=== PATIENT | female | born 1960 | race Caucasian/White ===

== ENCOUNTER 2021-10-08 17:27 | Inpatient (IN) | payer OTHER ==
[~2021-10-08] VITALS: Ht 170.2 cm; Wt 61.6 kg
[~2021-10-08 17:27] MED LIST: ALPRAZOLAM ER1 MG PO; IBUPROFEN 600600 M1 PO; LOPRESSOR100 MG PO; NORCO 5-325 TA1 EACH PO
[2021-10-08 17:37] VITALS: BP 127/88
[2021-10-08 19:19] LABS: ABSOLUTE NEUTROPHILS 9.1 thou/uL (1.4-8.2); BASOPHILS 0.7 % (0.0-2.0); EOSINOPHILS 0.7 % (0.0-3.0); HEMATOCRIT 38.5 % (37.0-47.0); HEMOGLOBIN 12.2 gm/dL (12.0-15.0); LYMPHOCYTES 9.6 % (24.0-44.0); MCHC 31.6 g/dL (28.0-37.0); MCV 85.5 fL (80.0-100.0); MONOCYTES 5.8 % (1.0-8.0); PLATELET COUNT 246 thou/uL (150-400); POLYS 83.2 % (36.0-66.0); RDW 16.1 % (10.5-14.5); WBC 10.9 thou/uL (4.0-11.0)
[2021-10-08 19:23] LABS: CALCIUM 8.4 mg/dL (8.5-10.1); CREATININE 0.9 mg/dL (0.6-1.0); POTASSIUM 3.9 mmol/L (3.5-5.1)
[2021-10-08 19:32] LABS: TOTAL BILIRUBIN 0.7 mg/dL (0.2-1.0); TOTAL PROTEIN 6.7 g/dL (6.4-8.2)
[2021-10-08] MEDS ORDERED: METOPROLOL TAR100 MG PO (22:37)
[2021-10-08 22:52] VITALS: BP 118/90
[2021-10-08 23:55] VITALS: BP 124/90
[2021-10-09] VITALS (8 sets, daily range): BP systolic 109–124; BP diastolic 77–88
[2021-10-09 03:35] LABS: CHOLESTEROL 107 mg/dL (<200); HDL CHOLESTEROL 33 mg/dL (>40); LDL CHOLESTEROL 57 mg/dL (<100); TC:HDL 3.2 Ratio (Not establshd); TRIGLYCERIDE 86 mg/dL (<150); VLDL 17 mg/dL (<40)
[2021-10-09 03:36] LABS: SERUM ASSESSMENT Clear
[2021-10-09 03:42] LABS: CALCIUM 8.6 mg/dL (8.5-10.1); CREATININE 0.9 mg/dL (0.6-1.0); POTASSIUM 3.5 mmol/L (3.5-5.1)
--- NOTE | 2021-10-09 04:56 | NUR ---
PT ADMITTED FROM HOME FOR ELEVATED TROPONIN AND SOB, ALERT AND ORIENTEDX4, SR/ST ON TELE, DENIES CP, STILL SOME WITH ACTIVITY, REMAINS ON RA, O2SATS STABLE, ADMISSION ASSESSMENT, HX. AND EDUCATION COMPLETED. SKIN INTACT, IV TO THE RAC INTACT, PLAN FOR LASIX AND US TO THE LLE TO R/O DVT, WILL CONTINUE TO MONITOR
[2021-10-09 08:57] LABS: MAGNESIUM 1.9 mg/dL (1.8-2.4)
--- NOTE | 2021-10-09 12:28 | NUR ---
TOOK OVER CARE OF THIS PATIENT AT 0700. PT RESTING IN BED. PT COMPLAINTS OF FEELING FATIGUED. PT SOA UPON EXERTION; PT WEARING 2 L NC; SPO2 HAS REMAINED IN THE UPPER 90'S. VSS. PT COMPLAINT OF NAUSEA AND WRETCHING WHEN SHE RETURNED FROM ULTRASOUND. ADMIN PRN ZOFRAN WITH MILD RELIEF OF SYMPTOMS. PT COMPLAINT OF FEELING ANXIOUS; ADMIN PRN ANXIETY MEDICATION. WILL CONTINUE TO MONITOR. INFORMED CARDIOLOGY REGARDING PTS SYMPTOMS WELL CHANGES ON CRM DYNAMICS DEVELOPER.
--- NOTE | 2021-10-09 12:48 | 2DMMODE ---
[facility] [place] [address] 2 D/M-MODE ECHOCARDIOGRAM Name: LUIZA NINA Room #: 211-P ADM IN M.R.#: [id number] Admission: 10/08/21 Attend Phys: Brian Beasley MD Discharge: Date of : 60 Report #: [id number] THIS REPORT FOR: cc: Jon Flores MD, Kirk D. MD Park, Jin S. MD ~ APPROVED REPORT Study performed: 10/09/2021 11:37:28 EXAM: Comprehensive 2D, Doppler, and color-flow Echocardiogram Patient Location: Bedside Room #: 211 Status: routine BSA: 1.71 HR: 76 bpm BP: 124/88 mmHg Rhythm: LBBB Other Information Study Quality: Excellent Indications Short of breath, leg swelling, CHF, Elevated troponin. Hx: COPD, HTN, strong family history. 2D Dimensions RVDd: 42.71 mm IVSd: 7.91 (7-11mm) LVOT Diam: 21.25 (18-24mm) LVDd: 60.21 mm PWd: 8.57 (7-11mm) Ascending Ao: 33.09 (22-36mm) LVDs: 57.48 (25-40mm) Left Atrium: 50.57 (27-40mm) Aortic Root: 35.15 mm Volumes Left Atrial Volume (Systole) Single Plane 4CH: 76.20 mL Single Plane 2CH: 73.97 mL LA ESV Index: 47.00 mL/m2 Aortic Valve AoV Peak Asim.: 0.72 m/s AO Peak Gr.: 2.08 mmHg [facility] [address] [address] 2 D/M-MODE ECHOCARDIOGRAM Name: LUIZA NINA JODY Room #: 211-P [facility] IN [facility].#: [id number] Admission: 10/08/21 Attend Phys: Brian Beasley MD Discharge: Date of : 60 Report #: [id number] Mitral Valve E/A Ratio: 3.2 MV Decel. Time: 77.37 ms MV E Max Asim.: 0.76 m/s MV A Asim.: 0.24 m/s MV PHT: 22.44 ms IVRT: 121.11 ms Pulmonary Valve PV Peak Asim.: 0.47 m/s PV Peak Gr.: 0.90 mmHg Tricuspid Valve TR Peak Asim.: 2.74 m/s RAP Estimate: 15.00 mmHg TR Peak Gr.: 30.00 mmHg PA Pressure: 45.00 mmHg Left Ventricle Left ventricle is mildly dilated. There is global hypokinesis of the left ventricle. There is normal left ventricular wall thickness. Left ventricular systolic function is severely decreased. LVEF is 15%. Severe diastolic dysfunction is present (restrictive filling). Right Ventricle Right ventricle is borderline dilated. Right ventricle is hypokinetic. Atria Left atrium is severely dilated. Right atrium is moderately dilated. Aortic Valve Aortic valve is mildly calcified. Mild aortic regurgitation. There is no aortic valvular stenosis. Mitral Valve The mitral valve is normal in structure. Moderate mitral regurgitation. Tricuspid Valve The tricuspid valve is normal in structure. Severe tricuspid regurgitation. Unable to assess PA pressure. Pulmonic Valve The pulmonary valve is normal in structure. Mild pulmonic regurgitation. [facility] [address] [place] [address] 2 D/M-MODE ECHOCARDIOGRAM Name: LUIZA NINA Room #: [address] [place] [address] [place] ..#: [id number] Admission: 10/08/21 Attend Phys: Brian Beasley MD Discharge: Date of : 60 Report #: [id number] Great Vessels The aortic root is normal in size. The ascending aorta is normal in size. Pericardium There is no pericardial effusion. Bilateral pleural effusions. <Conclusion> Left ventricle is mildly dilated. There is normal left ventricular wall thickness. Left ventricular systolic function is severely decreased. Right ventricle is borderline dilated. Right ventricle is hypokinetic. Left atrium is severely dilated. Mild aortic regurgitation. Moderate mitral regurgitation. Severe tricuspid regurgitation. <ELECTRONICALLY SIGNED> By: Adeel Rivera MD 10/09/21 1248 1248 1248 Adeel Rivera MD /INF
--- NOTE | 2021-10-09 14:26 | EKG ---
[address] [place] [address] ELECTROCARDIOGRAM REPORT Name: LIUZA NINA Room #: 211- ADM IN M.R.#: [id number] Admission: 10/08/21 Attend Phys: Brian Beasley MD Discharge: Date of : 60 Report #: [id number] [facility] ED Test Date: 2021-10-08 Test Time: 17:45:00 Pat Name: LUIZA NINA Department: Room: 211 P Gender: F Erp Specialist: MY : 1960 Requested By: Evelin Delgado Order Number: [id number] MD: Adeel Rivera Measurements Intervals [place] Rate: 106 P: 85 [place]: 164 QRS: -39 QRSD: 124 T: 121 QT: 371 QTc: 493 Interpretive Statements Sinus tachycardia Probable left atrial enlargement Left bundle branch block pattern Compared to ECG 03/19/2013 13:56:03 Left bundle-branch block now present Sinus rhythm no longer present ST (T wave) deviation no longer present Electronically Signed On 10-09-2021 14:26:38 UNDERGROUND FOREMAN by Adeel Rivera [email or web address] <ELECTRONICALLY SIGNED> By: Adeel Rivera MD 10/09/21 1426 1745 1745 Adeel Rivera MD /ALESSIA
--- NOTE | 2021-10-09 15:06 | NUR ---
Case opened to follow for nm planning. Booth Supervisor visited with the pt at bedside. She indicates that she lives at home with her spouse and she is normally indep with gait and adl's. She has copd and does smoke. She has had worsening sob for the past week. Covid neg. No dme or hh history. No insurance x 2 years as her spouse is disabled and no longer worker. Prior to this she saw Jag Holt for PCP. She has been seen by [facility] and they started a [place]. Pt getting cardiac workup as well. Echo/stress today possible cardiac cath. Cm role introduced. Pt familiar with [facility] $4 list for medications. [facility] and [facility] discussed as possible followup clinic/health system for ongoing medical care at nm. Possible candidate for ss disablity pending her heart workup and extent of her COPD.
--- NOTE | 2021-10-09 15:14 | NUR ---
SPOKE TO TRUDY MONAHAN ARMOR RECONNAISSANCE VEHICLE CREWMAN REGARDING PATIENT STATUS; CONTINUED NAUSEA, FATIGUE, AND GENERAL MALAISE. CARDIOLOGY REVIEWED PATIENTS ECHO; WOULD LIKE TO CONTINUE TO MONITOR PATIENT OVER THE WEEKEND. WILL CONTINUE TO MONITOR. VSS.
[2021-10-09 16:56] LABS: BE(vivo) -2.8 mmol/L (-2 to +3); HCO3 21.5 mmol/L (22.0-26.0); PCO2 35.8 mmHg (35.0-45.0); PO2 105.1 mmHg (80.0-100.0); pH 7.396 (7.360-7.450); sO2 97.8 % (92.0-98.0)
[2021-10-09 17:24] LABS: CALCIUM 8.9 mg/dL (8.5-10.1); CREATININE 1.1 mg/dL (0.6-1.0)
[2021-10-09 17:28] LABS: POTASSIUM 4.6 mmol/L (3.5-5.1)
[2021-10-09 22:46] LABS: AMP/METHAMP POSITIVE (Negative); BARBITURATES Negative (Negative); BENZODIAZEPINES POSITIVE (Negative); COCAINE Negative (Negative); METHADONE Negative (Negative); OPIATES Negative (Negative); PCP Negative (Negative)
[2021-10-10 04:21] VITALS: BP 108/78
--- NOTE | 2021-10-10 04:41 | NUR ---
ASSUMED PT CARE AT 1900, PT IS DROWSY, ORIENTEDX4, SPOUSE AT BEDSIDE, ASSESSMENTS CHARTED, SR ON TELE, 11 BEATS OF VTACH NOTED ON TELE, ASYMPTOMATIC, DENIES CP, SOA WITH ACTIVITY, URINE SEND FOR TOX SCREEN, RESULTS COMMUNICATED TO CERTIFIED DIETARY MANAGER LIME SLUDGE KILN OPERATOR, REMAINS WEAK, STBY ASSIST TO THE B/S COMMODE, PLAN FOR POSSIBLE CATH PER CARDIOLOGY, WILL CONTINUE TO MONITOR
[2021-10-10 07:55] VITALS: BP 117/82
[2021-10-10 11:10] LABS: BASOPHILS 0.5 % (0.0-2.0); HEMATOCRIT 42.4 % (37.0-47.0); HEMOGLOBIN 13.3 gm/dL (12.0-15.0); LYMPHOCYTES 10.5 % (24.0-44.0); MCH 26.7 pg (26.0-34.0); MCHC 31.4 g/dL (28.0-37.0); MCV 84.9 fL (80.0-100.0); MONOCYTES 10.1 % (1.0-8.0); PLATELET COUNT 291 thou/uL (150-400); POLYS 78.9 % (36.0-66.0); RBC 4.99 mil/uL (4.20-5.00); RDW 16.2 % (10.5-14.5); WBC 12.7 thou/uL (4.0-11.0)
[2021-10-10 11:40] LABS: ALBUMIN 3.1 g/dL (3.4-5.0); CALCIUM 8.7 mg/dL (8.5-10.1); CREATININE 1.4 mg/dL (0.6-1.0); MAGNESIUM 1.6 mg/dL (1.8-2.4); POTASSIUM 4.6 mmol/L (3.5-5.1); TOTAL BILIRUBIN 1.9 mg/dL (0.2-1.0); TOTAL PROTEIN 6.8 g/dL (6.4-8.2)
[2021-10-10 12:05] VITALS: BP 101/75
[2021-10-10 16:08] VITALS: BP 110/82
[2021-10-10 20:15] VITALS: BP 116/90
--- NOTE | 2021-10-11 02:57 | NUR ---
ASSESSMENTS CHARTED, MEDS CHARTED GIVEN. PATIENT RESTING IN BED DURING SHIFT. SR WITH BBB ON TELEMETRY. WEEZES ON 1 LITER NC. NPO SINCE MIDNIGHT FOR US OF ABDOMEN.
[2021-10-11 04:45] VITALS: BP 106/68
[2021-10-11 05:07] LABS: ABSOLUTE NEUTROPHILS 11.5 thou/uL (1.4-8.2); BASOPHILS 0.2 % (0.0-2.0); EOSINOPHILS 0.1 % (0.0-3.0); HEMATOCRIT 42.5 % (37.0-47.0); HEMOGLOBIN 13.3 gm/dL (12.0-15.0); LYMPHOCYTES 4.5 % (24.0-44.0); MCH 26.3 pg (26.0-34.0); MCHC 31.1 g/dL (28.0-37.0); MCV 84.3 fL (80.0-100.0); MONOCYTES 4.5 % (1.0-8.0); PLATELET COUNT 271 thou/uL (150-400); POLYS 90.7 % (36.0-66.0); RBC 5.05 mil/uL (4.20-5.00); RDW 16.2 % (10.5-14.5); WBC 12.7 thou/uL (4.0-11.0)
[2021-10-11 05:14] LABS: ALBUMIN 2.5 g/dL (3.4-5.0); CALCIUM 8.2 mg/dL (8.5-10.1); MAGNESIUM 1.4 mg/dL (1.8-2.4); PHOSPHORUS 3.8 mg/dL (2.6-4.7); TOTAL BILIRUBIN 1.6 mg/dL (0.2-1.0); TOTAL PROTEIN 5.9 g/dL (6.4-8.2)
[2021-10-11 07:14] VITALS: BP 120/90
[2021-10-11 10:48] VITALS: BP 108/80
[2021-10-11 13:02] LABS: URINE BILIRUBIN NEGATIVE (Negative); URINE BLOOD TRACE (Negative); URINE CLARITY CLEAR; URINE COLOR YELLOW; URINE GLUCOSE-RANDOM* NEGATIVE (Negative); URINE KETONES NEGATIVE (Negative); URINE LEUKOCYTES-REFLEX NEGATIVE (Negative); URINE NITRITE-REFLEX NEGATIVE (Negative); URINE PROTEIN (DIPSTICK) NEGATIVE (Negative); URINE UROBILINOGEN 0.2 E.U./dl (0.2-1.0)
[2021-10-11 16:22] VITALS: BP 95/61
--- NOTE | 2021-10-11 19:37 | NUR ---
Pt was A&Ox4, VS stable, afebrile throughout shift. Pt had abdomenal ultrasound done in AM. Plam is for receiver/laborer on 10/12/21. Pt has poor appetite and reports feeling very tired. Pt felt nauseous twice during shift - controlled with Zofran. Pt is resting in bed. Requested xanax at bedtime. No concerns at this time. Continue to monitor.
[2021-10-11 19:45] VITALS: BP 110/80
--- NOTE | 2021-10-12 02:35 | NUR ---
ASSESSMENTS CHARTED, MEDS CHARTED GIVEN. RESTING IN BED DURING SHIFT. HOPING TO GET QUALITY SLEEP TONIGHT. STILL SOB WITH ACTIVITY. PATIENT REQUESTED ALPRAZOLAM TO HELP QUIET MIND. PATIENT IS SCHEDULED FOR THE WATER COMMISSIONER IN THE MORNING.
[2021-10-12 04:45] VITALS: BP 108/76
[2021-10-12 06:06] LABS: HAV IgM AB (ANTI-HAV IgM) Negative (Negative); HEPATITIS B SURFACE AG Negative (Negative)
[2021-10-12 07:35] LABS: CALCIUM 8.1 mg/dL (8.5-10.1); CREATININE 1.1 mg/dL (0.6-1.0); POTASSIUM 4.2 mmol/L (3.5-5.1)
[2021-10-12 08:32] VITALS: BP 118/89
[2021-10-12 12:08] VITALS: BP 117/89
[2021-10-12 12:23] LABS: CALCIUM 8.2 mg/dL (8.5-10.1)
[2021-10-12 15:04] LABS: BE(vivo) 4.5 mmol/L (-2 to +3); HCO3 31.6 mmol/L (22.0-26.0); PCO2 VENOUS 57.2 mmHg (41.0-51.0); PO2 VENOUS 29.4 mmHg (35.0-45.0)
[2021-10-12 15:05] LABS: BE(vivo) 1.7 mmol/L (-2 to +3); HCO3 28.1 mmol/L (22.0-26.0); PCO2 51.2 mmHg (35.0-45.0); PO2 359.2 mmHg (80.0-100.0); pH 7.357 (7.360-7.450); sO2 99.8 % (92.0-98.0)
--- NOTE | 2021-10-12 16:08 | CATHLAB ---
[facility] [place] [address] [address] INVASIVE PROCEDURE REPORT Name: LUIZA NINA Room #: 211-P ADM IN M.R.#: [id number] Admission: 10/08/21 Attend Phys: Amanda Taylor Hemanth Discharge: Date of : 60 Report #: [id number] THIS REPORT FOR: cc: Jon Flores MD, Kirk D. MD Park, Jin S. MD ~ APPROVED REPORT Study performed: 10/12/2021 14:09:19 Patient Details Patient Status: In-Patient Room #: 211 The patient is a 60 year-old female Event Personnel Adeel Rivera Die Repair, Kat Krueger RTR Monitor, Leon Meza RTR ScrubCaleb Dexter RN addictions counselor Performed Art Access - R femoral artery* Sammy Access - R femoral vein Right and Left Heart Cath w/or w/o Coronarie [id number] [facility] Hemostasis with Manual pressure 60756 Initial Mod Sed Same Phys/QHP Gr5y 100263 66421 Mod Sed Same Phys/QHP Ea [id number] Indication CHF Current Status: , Dyspnea, Cardiomyopathy Risk Factors Hypercholesterolemia, Tobacco History () Procedure Narrative The Right Groin^ was infiltrated with 1% Lidocaine subcutaneous anesthesia. A PINNACLE 4FR Sheath #[id number] sheath was inserted into the RFA. Coronary angiography was performed using coronary diagnostic catheters. The right coronary system was accessed and visualized with a JR4 catheter. The left coronary system was accessed and visualized with a JL4 catheter. The left ventricle was accessed and visualized with a JR4 catheter. Hemostasis was obtained with manual pressure following sheath removal without any complications. The patient tolerated the procedure well and there were no complications associated with the procedure. There was no hematoma. Intraoperative Conscious Sedation Sedation start time: 14:40 Case end Time: [facility] [address] [place] [address] INVASIVE PROCEDURE REPORT Name: MAICOLUIZA ALEJANDRO Room #: [address] [place] [address] [place] ..#: [id number] Admission: 10/08/21 Attend Phys: Amanda Ambriz Discharge: Date of : 60 Report #: [id number] 15:18 Fentanyl 50 mcg Versed 0.5 mg Fluoro Time: 2.70 minutes Dose: DAP 1984.30 cGycm2 204 mGy Contrast Type and Amount: Omnipaque 30 ml Coronary Angiography The patient's coronary anatomy is co- dominant. Diagnostic Cath Left Main Left main artery is a large-caliber vessel, appears angiographically normal. LAD The LAD is a moderate-sized caliber vessel, traverses the anterior wall and wraps around the apex. There is mild disease in the proximal segment, less than 20%. Diagonal 1 This is a moderate-sized caliber vessel, patent with no flow-limiting lesions. This vessel divides into 2 branches at the midpoint. Circumflex The left circumflex artery is a codominant vessel with no flow-limiting lesions. OM1 This is a small to moderate-sized caliber vessel, patent with no flow-limiting lesions. OM2 This is a small to moderate-sized caliber vessel, patent with no flow-limiting lesions. Right Coronary There is mild disease in the midsegment, less than 20%. R PDA This is a small to moderate-sized caliber vessel, patent with no flow-limiting lesions. Left Ventriculography Left Ventriculography was not performed. Ejection Fraction was 20% based off patient's Echocardiogram. An LVEDP was measured and there is no gradient across the outflow tract. Hemodynamics The right atrial mean pressure is 22 mmHg. The right ventricular pressure is 58/5 mmHg. The pulmonary artery pressure is 63/36 mmHg with a mean of 46 mmHg. The mean pulmonary capillary wedge pressure is 43 mmHg. The aortic pressure is 112/87 mmHg with a mean of 97 mmHg. The left ventricular pressure is 109/25 mmHg with a mean of mmHg. The left ventricular end diastolic pressure is 33 mmHg. PaO2 saturation is 52.00 %. Arterial saturation is 98.60 %. The cardiac output using the Otf method is 1.91 L/min. The cardiac index using the Otf method is 1.15 L/min/m2. [facility] [address] [place] [address] INVASIVE PROCEDURE REPORT Name: LUIZA NINA VERA Room #: 211-P [facility] IN M.R.#: [id number] Admission: 10/08/21 Attend Phys: Amanda Ambriz Discharge: Date of : 60 Report #: [id number] Conclusion 1. There is mild, nonobstructive CAD in the LAD and RCA. 2. This is a codominant system. 3. Right-sided hemodynamics as measured, with moderately severe pulmonary hypertension. 4. Severe nonischemic cardiomyopathy. 5. Recommend guideline directed medical therapy. <ELECTRONICALLY SIGNED> By: Adeel Rivera MD 10/12/21 1608 1608 1608 Adeel Rivera MD /INF
--- NOTE | 2021-10-12 16:38 | NUR ---
CM FOLLOWING FOR DC NEEDS. PRINTED EDUCATIONAL RESOURCE MATERIALS PROVIDED TO PT REGARDING [facility] AND [facility] FOR FOLLOW UP CARE AFTER DICHARGE.
--- NOTE | 2021-10-12 18:41 | NUR ---
ASSESSMENT CHARTED - MEDS PER CARLOS- BI DIET AND FLUIDS. PT UP TO THE COMMODE THIS AM - PT HAD CATH PROCEDURE THIS AFTERNOON - VSS - GROIN C/D/I. PT WITH CO'S OF BACK PAIN WHILE LAYING FLAT - TURNED TO SIDE WITH LEG STRAIGHT AND STATED IT IS MUCH BETTER, NO INTERVENTION DONE. PT APPEARS TO0 BE RESTING AT THE PRESENT TIME.
[2021-10-12 20:15] VITALS: BP 107/74
--- NOTE | 2021-10-13 04:43 | NUR ---
RECEIVED PATIENT AT 1900H.PATIENT IS ALERT AND ORIENTED X4.WITH RIGHT GROIN COVERED WITH DRESSING C/D/I.ASSESSMENT DONE CHARTED.MEDS GIVEN PER DEC.ALL NEEDS ATTENDED.TO CONTONOUSLY MONITOR.
[2021-10-13 04:45] VITALS: BP 105/72
[2021-10-13 07:00] VITALS: BP 111/76
[2021-10-13 07:25] LABS: HEMATOCRIT 40.1 % (37.0-47.0); HEMOGLOBIN 12.6 gm/dL (12.0-15.0); MCH 26.4 pg (26.0-34.0); MCHC 31.3 g/dL (28.0-37.0); MCV 84.2 fL (80.0-100.0); RBC 4.77 mil/uL (4.20-5.00); RDW 16.5 % (10.5-14.5); WBC 10.1 thou/uL (4.0-11.0)
[2021-10-13 07:32] LABS: CALCIUM 8.2 mg/dL (8.5-10.1); POTASSIUM 3.8 mmol/L (3.5-5.1)
[2021-10-13 11:00] VITALS: BP 93/72
--- NOTE | 2021-10-13 11:19 | NUR ---
SPOKE WITH TRUDY CARDIOLOGY HIDE INSPECTOR WHO INSTRUCTED AN APPLICATION HAS BEEN COMPLETED FOR PTS LIFEVEST AND LIFEVEST REP WILL VISIT PT TODAY. IN PTS DC INSTRUCTIONS [facility] IS NOTED FOR MEDS IF PT DC'S DURING THE WEEK WHEN PHARM IS OPEN. CM CAN VOUCH FOR MEDS.
[2021-10-13 16:00] VITALS: BP 88/54
--- NOTE | 2021-10-13 18:40 | NUR ---
ASSESSMENT CHARTED - MEDS PER DEC - GIVEN XANEX THIS AFTERNOON FOR CO'S OF ANXIOUSNESS. SEEN BY LIFE [facility] REP FOR INSTUCTION ON LIFE VEST USE AT HOME. STARTAN ON LOSARTAN THIS SHIFT. PT UP WITH US OF WALKER WITH PHYS THERAPY - SOB WITH EXERTION. NO CO'S OF PAIN OR NAUSEA. AT BEDSIDE AT PRESENT TIME. NO CO'S.
[2021-10-13 19:25] VITALS: BP 107/77
[2021-10-14 03:53] VITALS: BP 95/62
--- NOTE | 2021-10-14 04:16 | NUR ---
RECEIEVED THE PATIENT AT 1900H.ASSESSMENT DONE CHARTED.MEDS GIVEN PER DEC.NO COMPLAINTS OF PAIN.COMPLAINTS OF ANXIETY EARLY THIS MORNING, PRN XANAX GIVEN.ALL NEEDS ATTENDED.TO CONTINOUSLY MONITOR.
[2021-10-14 09:02] VITALS: BP 96/61
[2021-10-14] MEDS ORDERED: ALPRAZOLAM ER1 MG PO (10:00)
[2021-10-14] MEDS ORDERED: PEPCID20 MG PO (10:00)
[2021-10-14] MEDS ORDERED: COREG6.25 MG PO (10:00)
[2021-10-14 12:34] VITALS: BP 116/85
[2021-10-14 13:04] VITALS: BP 111/81
[2021-10-14 13:07] VITALS: BP 111/81
[2021-10-14] MEDS ORDERED: VENTOLIN HFA 1818 GM INH (15:19)
[2021-10-14] MEDS ORDERED: FREESTYLE LANC1 EACH MISCELL (15:19)
--- NOTE | 2021-10-14 16:20 | NUR ---
PT WITH DC ORDERS FOR HOME. CHANGED PT PHARMACY TO [facility]. FAXED FACESHEET AND CALLED PHARMACY TO VERIFY HOW MUCH MEDS WOULD COST. [facility] VOUCHING MEDS FOR PT. COST FOR VOUCHING MEDS FOR PT IS $83.
--- NOTE | 2021-10-14 16:52 | NUR ---
ASSESSMNT CHARTED - MEDS PER MAR - BI DIET AND FLUIDS - NO CO'S OF PAIN RO NAUSEA. AMBULATED IN ROOM WITH PHYS THERAPY AND THE USE OF A WALKER - BI WELL -SOB WITH EXERTION. SEEN BY SEE APONTE VEST REP AND PATIENT FITTED AND EDUCATED IN REGARDS TO VEST AND USE AT HOME. PT ALESSIA MARIE EVENING - INSTRUCTION RE HOME MEDS/ CARE AND FOLLOW UP GIVEN TO PATIENT STATED UNDERSTANDING ON INSTRUCTION GIVEN. LEFT UNIT VIA WHEELCHAIR , HOME VIA PVT VEHICLE ACCOMAPNIED BY SPOUSE. NO CO'S AT TIME OF D/C.
== END 2021-10-14 17:04 | disposition home or self-care (01) | DRG 280 ==
LOC: ER 17:27 → 2N 21:06 → EROBS 21:06 → 2N 23:57
PROVIDERS: Internal Medicine; Internal Medicine Cardiovascular Disease; Nurse Practitioner; Nurse Practitioner Family; Physician Assistant; ADMIT Hospitalist; ATTEND Hospitalist
PROC: B2111ZZ Fluoroscopy of Multiple Coronary Arteries using Low Osmolar Contrast (ICD-10-PCS; principal; 2021-10-12)
PROC: B2151ZZ Fluoroscopy of Left Heart using Low Osmolar Contrast (ICD-10-PCS; principal; 2021-10-12)
PROC: 4A023N7 Measurement of Cardiac Sampling and Pressure, Left Heart, Percutaneous Approach (ICD-10-PCS; principal; 2021-10-12)
DX: I21.4 Non-ST elevation (NSTEMI) myocardial infarction (principal); J96.01 Acute respiratory failure with hypoxia; I50.23 Acute on chronic systolic (congestive) heart failure; I13.0 Hypertensive heart and chronic kidney disease with heart failure and stage 1 through stage 4 chronic kidney disease, or unspecified chronic kidney disease; I25.5 Ischemic cardiomyopathy; Z20.822 Contact with and (suspected) exposure to COVID-19; F41.9 Anxiety disorder, unspecified; I25.10 Atherosclerotic heart disease of native coronary artery without angina pectoris; Z71.6 Tobacco abuse counseling; N18.9 Chronic kidney disease, unspecified; F17.210 Nicotine dependence, cigarettes, uncomplicated
CPT/HCPCS: 10081

== ENCOUNTER 2021-10-21 13:52 | Inpatient (IN) | payer OTHER ==
[~2021-10-21] VITALS: Ht 170.2 cm; Wt 55.9 kg
[~2021-10-21 13:52] MED LIST changes: +COREG6.25 MG PO; +FREESTYLE LANC1 EACH MISCELL; +METOPROLOL TAR100 MG PO; +PEPCID20 MG PO; +VENTOLIN HFA 1818 GM INH
[2021-10-21 13:53] VITALS: BP 116/78
[2021-10-21 16:18] LABS: ABSOLUTE NEUTROPHILS 8.6 thou/uL (1.4-8.2); BASOPHILS 0.8 % (0.0-2.0); EOSINOPHILS 1.1 % (0.0-3.0); HEMATOCRIT 36.9 % (37.0-47.0); HEMOGLOBIN 11.5 gm/dL (12.0-15.0); LYMPHOCYTES 10.1 % (24.0-44.0); MCH 26.1 pg (26.0-34.0); MCHC 31.2 g/dL (28.0-37.0); MCV 83.6 fL (80.0-100.0); MONOCYTES 6.1 % (1.0-8.0); PLATELET COUNT 231 thou/uL (150-400); POLYS 81.9 % (36.0-66.0); RBC 4.42 mil/uL (4.20-5.00); RDW 16.5 % (10.5-14.5); WBC 10.6 thou/uL (4.0-11.0)
[2021-10-21 16:57] LABS: CALCIUM 8.6 mg/dL (8.5-10.1); CREATININE 0.9 mg/dL (0.6-1.0); POTASSIUM 4.8 mmol/L (3.5-5.1)
[2021-10-21 17:08] LABS: MAGNESIUM 1.9 mg/dL (1.8-2.4); TOTAL BILIRUBIN 0.6 mg/dL (0.2-1.0); TOTAL PROTEIN 6.4 g/dL (6.4-8.2)
[2021-10-21 22:24] VITALS: BP 112/56
[2021-10-22 02:39] VITALS: BP 118/87
[2021-10-22 02:40] VITALS: BP 118/87
[2021-10-22 07:09] LABS: CALCIUM 8.5 mg/dL (8.5-10.1); POTASSIUM 4.4 mmol/L (3.5-5.1)
--- NOTE | 2021-10-22 07:43 | EKG ---
[address] [place] [address] ELECTROCARDIOGRAM REPORT Name: LUIZA NINA Room #: 170-17 ADM IN M.R.#: [id number] Admission: 10/21/21 Attend Phys: Dmitry Braun MD Discharge: Date of : 60 Report #: [id number] [facility] ED Test Date: 2021-10-21 Test Time: 16:47:04 Pat Name: LUIZA NINA Department: Room: 170 Gender: F Home Theater Experience Expert: brandon : 1960 Requested By: Carly Galeano Order Number: [id number] MD: Alexandr Mcnamara Measurements Intervals [place] Rate: 86 P: 49 [place]: 162 QRS: -40 QRSD: 130 T: 141 QT: 415 QTc: 497 Interpretive Statements Pacemaker spikes or artifacts Sinus rhythm Ventricular premature complex Probable left atrial enlargement Left bundle branch block Compared to ECG 10/08/2021 17:45:00 Ventricular premature complex(es) now present Sinus tachycardia no longer present Electronically Signed On 10-22-2021 7:43:41 DOUGHNUT MACHINE OPERATOR by Alexandr Mcnamara [email or web address] <ELECTRONICALLY SIGNED> By: Alexandr Mcnamara MD, FACC 10/22/21 0743 1647 1647 Alexandr Mcnamara MD, FAC /EPI
[2021-10-22 08:00] VITALS: BP 109/77
[2021-10-22 14:44] VITALS: BP 97/68
--- NOTE | 2021-10-22 15:56 | NUR ---
pt alert/oriented, cooperative, tolerating ambulating to toilet which is mere steps from her bed. pt displaying her abd which is much smaller than on her arrival. it's soft and barely rounded with ascites improved r/t lasix administration. spouse present to visit pt.
--- NOTE | 2021-10-22 15:59 | NUR ---
report to GURWINDER Schumacher. transferring to ccu #[id number] per wheelchair.
--- NOTE | 2021-10-22 18:06 | NUR ---
PT ARRIVED FROM ED AT APPROXIMATLY 1630. PT ADMITTED FOR ABDOMINAL ASCITES, CHF, NSTEMI. PT STATED HER ONLY CURRENT COMPLAINT IS SHOULDER PAIN RATING IT A 3/10, DENIES THE NEED FOR ANY PAIN CONTROL. DENIOES ANY OTHER COMPLAINTS.
[2021-10-22 18:30] VITALS: BP 98/70
[2021-10-22 20:06] VITALS: BP 115/83
[2021-10-23 03:48] VITALS: BP 104/75
[2021-10-23 04:46] LABS: HEMATOCRIT 34.1 % (37.0-47.0); HEMOGLOBIN 10.9 gm/dL (12.0-15.0); MCH 26.7 pg (26.0-34.0); MCHC 31.9 g/dL (28.0-37.0); MCV 83.7 fL (80.0-100.0); RBC 4.07 mil/uL (4.20-5.00); RDW 16.8 % (10.5-14.5); WBC 8.1 thou/uL (4.0-11.0)
[2021-10-23 04:54] LABS: CALCIUM 8.6 mg/dL (8.5-10.1); CREATININE 0.9 mg/dL (0.6-1.0); MAGNESIUM 1.8 mg/dL (1.8-2.4); POTASSIUM 3.6 mmol/L (3.5-5.1)
[2021-10-23 09:13] VITALS: BP 107/77
[2021-10-23 12:46] VITALS: BP 150/89
[2021-10-23 13:51] LABS: BE(vivo) 5.2 mmol/L (-2 to +3); HCO3 29.4 mmol/L (22.0-26.0); PCO2 41.4 mmHg (35.0-45.0); pH 7.469 (7.360-7.450)
[2021-10-23 13:52] LABS: PO2 54.2 mmHg (80.0-100.0)
[2021-10-23 17:04] VITALS: BP 110/62
[2021-10-23 20:00] VITALS: BP 107/75
[2021-10-24 04:00] VITALS: BP 113/79
[2021-10-24 04:49] LABS: CALCIUM 8.7 mg/dL (8.5-10.1); CREATININE 1.1 mg/dL (0.6-1.0); POTASSIUM 3.9 mmol/L (3.5-5.1)
[2021-10-24 08:00] VITALS: BP 112/85
[2021-10-24] MEDS ORDERED: TORSEMIDE20 MG PO (10:09)
[2021-10-24] MEDS ORDERED: METOPROLOL SUCC25 M1 PO (10:09)
[2021-10-24] MEDS ORDERED: SPIRONOLACTONE25 M1 PO (10:09)
[2021-10-24] MEDS ORDERED: LISINOPRIL10 MG PO (10:09)
[2021-10-24 12:00] VITALS: BP 118/90
[2021-10-24 16:30] VITALS: BP 101/73
--- NOTE | 2021-10-24 17:20 | NUR ---
Pt has been A&0x4, VS stable and afebrile throughout shift. Pt stated that rash has been itching more - currently managed with ice until next benadryl dose. Pt has been resting in bed. No complaints of pain other than sore muscle in should/neck area. No current concerns. Continue to monitor.
[2021-10-24 20:15] VITALS: BP 106/84
[2021-10-25] VITALS (7 sets, daily range): BP systolic 102–130; BP diastolic 71–91
--- NOTE | 2021-10-25 02:31 | NUR ---
PATIENT IN ROOM WATCHING TV. STATES THAT SHE HAS BEEN HAVING SOME NAUSEA. STATES THAT SHE FEELS IT IS FROM THE SOUP THAT SHE HAD AT LUNCH. AM SHIFT HAD RECENTLY ADMINISTERED PRN ZPFRAN WHICH SHE STATES HAS NOT HELPED. SHE DID HAVE A VOMITING EPISODE. NOTIFIED HOT BLASTER AND RECEIVED ORDER FOR COMPAZINE 10 MG IVP. PATIENT REQUESTED TO TAKE A HOT SHOWER TO HELP WELL. STATES THAT SHE IS SHORT OF BRETH WITH AMBULATION. AKSO COMPLAINS OF HAVING SOME STIFFNESS ON THE RIGHT SIDE OF HER NECK. SHE IS IRRITABLE BUT IS COOPERATIVE AND FOLLOWING AL COMMANDS. HER VITALS ARE STABLE. SHE IS ON 2LNC AT 94%. WILL CONTINUE TO MONITOR FOR CHANGES IN PATIENT STATUS.
[2021-10-25 04:43] LABS: CALCIUM 8.8 mg/dL (8.5-10.1); CREATININE 1.2 mg/dL (0.6-1.0); POTASSIUM 4.4 mmol/L (3.5-5.1)
--- NOTE | 2021-10-25 18:29 | NUR ---
Pt was A&0x4, VS stable and afebrile throughout shift. Pt stated feeling unusually tired and nauseous. Pt has also had poor appetite. Pt refused zofran and instead has been taking hot showers which she states has been helping her to feel better. No complaints of pain or SOB. She has been resting in bed. at bedside. No current complaints. Continue to monitor.
[2021-10-26 04:13] VITALS: BP 98/63
--- NOTE | 2021-10-26 04:30 | NUR ---
PATIENT RESTING IN HER ROOM AAOX4. STATES THAT SHE CONTIUES TO HAVE SOME NAUSEA. DID NOT HAVE ANY EPISODES OF VOMITING. STATED THAT HER HANDS WERE TINGLING BUT IS UNABLE TO DESCRIBE WHEN SYMPTOMS STARTED. PULSES ARE STRONG AND EQUAL BILATERALLY. PATIENT IS ABLE TO AMBULATE ON HER OWN. VSS. SHE WAS ABLE TO TOLERATE HER MEDICATION THIS EVENING. NO S/S OF DISTRESS NOTED. WILL CONTINUE TO MONITOR.
[2021-10-26 08:20] VITALS: BP 113/75
[2021-10-26 11:50] VITALS: BP 101/68
[2021-10-26 14:23] VITALS: BP 101/68
--- NOTE | 2021-10-26 16:25 | NUR ---
CM MET WITH PT THIS DAY. PT MEDICALLY STABLE TO DC HOME. PT REPORTS NO HOME NEEDS NEEDED. ASKED PT ABOUT MEDICATIONS. SHE REPORTED REPAIRER VENEER SHEET CALLED IN MEDS TO NOEMI AND SHE WILL RECEIVE A PAPER SCRIPT FOR ANXIETY MEDS. CLARIFIED [facility] AND PT AGREEABLE TO CHOICE IN PHARM. NO FURTHER CM NEEDS AT THIS TIME.
--- NOTE | 2021-10-26 16:33 | NUR ---
Pt discharged at 1500. Pt was A&0x4, VS stable and afebrile throughout shift. Pt stated that she is feeling much better today. No complaints of pain or nausea. Pt did an exercise walk with RT and O2 was DC'd. Pt was given discharge education and stated that she understood the education that was provided. No current concerns.
== END 2021-10-26 16:14 | disposition home or self-care (01) | DRG 280 ==
LOC: ER 13:52 → EROBS 19:10 → 2N 19:10 → EROBS 10-22 00:30 → 2N 10-22 17:14
PROVIDERS: Internal Medicine; Nurse Practitioner Family; ADMIT Internal Medicine; ATTEND Internal Medicine
DX: I21.4 Non-ST elevation (NSTEMI) myocardial infarction (principal); I50.23 Acute on chronic systolic (congestive) heart failure; I13.0 Hypertensive heart and chronic kidney disease with heart failure and stage 1 through stage 4 chronic kidney disease, or unspecified chronic kidney disease; R18.8 Other ascites; I47.1 Supraventricular tachycardia; I42.8 Other cardiomyopathies; I44.7 Left bundle-branch block, unspecified; N18.9 Chronic kidney disease, unspecified; F17.210 Nicotine dependence, cigarettes, uncomplicated; J43.9 Emphysema, unspecified; I08.3 Combined rheumatic disorders of mitral, aortic and tricuspid valves; I27.20 Pulmonary hypertension, unspecified; I25.10 Atherosclerotic heart disease of native coronary artery without angina pectoris; F41.1 Generalized anxiety disorder; R53.81 Other malaise; L27.0 Generalized skin eruption due to drugs and medicaments taken internally; F15.90 Other stimulant use, unspecified, uncomplicated; Z20.822 Contact with and (suspected) exposure to COVID-19; I25.2 Old myocardial infarction; Z71.6 Tobacco abuse counseling; Z71.41 Alcohol abuse counseling and surveillance of alcoholic; Z79.82 Long term (current) use of aspirin; Z79.899 Other long term (current) drug therapy; Z91.19 Patient's noncompliance with other medical treatment and regimen
CPT/HCPCS: 10081